=== PATIENT | male | born 1945 | race Caucasian/White ===

== ENCOUNTER → 2023-10-04 10:48 | Outpatient (REF) | payer MEDICARE, OTHER, SELFPAY ==
[2023-10-04 12:38] LABS: Blood Urea Nitrogen 21 mg/dl (9-20); Calcium 9.4 mg/dl (8.4-10.2); Carbon Dioxide 27 mmol/L (22-30); Chloride 103 mmol/L (98-107); Glucose 131 mg/dl (70-99); Potassium 4.5 mmol/L (3.5-5.1); Sodium 138 mmol/L (135-145); eGFR 56.93
== END ==
LOC: REG 10:48
PROVIDERS: ATTENDING PHYSICIAN Specialist
DX: N17.9 Acute kidney failure, unspecified (principal); I10 Essential (primary) hypertension
CPT/HCPCS: 36415; 80048

== ENCOUNTER 2024-02-08 08:36 | Inpatient (IN) | payer MEDICARE, OTHER, SELFPAY ==
[2024-02-06 20:38] VITALS: BP 161/74
[2024-02-06 20:39] VITALS: BMI 27.1
--- NOTE | 2024-02-06 20:50 | ED.GENMED ---
History of Present Illness
General
Chief Complaint: Chest Pain
Source: patient
Exam Limitations: none
Time Seen by Provider: 02/06/24 20:37
History of Present Illness
History of Present Illness:
79-year-old male started with some indigestion-like symptoms late last night. The symptoms waxed and waned throughout the night. He did not sleep well. Today significant time in bed because of tiredness and some recurring symptoms. Also has had
some increased baseline shortness of breath with exertion the last few days. Patient took nitroglycerin at home and passed out. He is currently asymptomatic.
Past History
Past History
ED Past Medical History: CAD, Cancer (lymphoma ), GERD, HTN, Hypercholesterolemia, MS (STEMI October 2018), Other (polycythemia vera), Other (Right upper extremity DVT October 2018) and Other (Obstructive sleep apnea)
ED Past Surgical History: Cardiac (Right coronary artery thrombectomy October 2018) and Urological (Prostatectomy 2011)
Social History
Tobacco: Non-smoker
Alcohol: None
Personal:
Living: with family
Employment: Retired
Family History
Family History: Other (Noncontributory)
Review of Systems
Review of Systems
Constitutional: Denies fever or chills
Cardiac: Denies palpitations
ABD/GI: Denies bloody stools or black stools
Phy Exam
Physical Exam
Physical Exam:
GENERAL: Alert and oriented in no apparent distress
EYE: Orbits normal.
NECK: Supple, no thyroid palpable
ENT: Pharynx without erythema
CARDIAC: Regular rate and rhythm without any obvious murmurs.
LUNGS: Clear breath sounds,normal
ABDOMEN: Soft, without focal tenderness or distention
NEUROLOGICAL: Alert and oriented , grossly non-focal
SKIN: Warm and dry, no rash or lesion, no discoloration, skin intact.
MUSCULOSKELETAL: No edema,no deformity.Good color
PSYCH: Normal and appropriate interaction.
Scores
Heart Score for Chest Pain Patients
STEMI patient?: No
History: Moderately Suspicious
ECG: Normal
Age: >/= 65 years
Risk Factors: >/= 3 Risk Factors or History of CAD
Troponin: </= Normal Limit
Heart Score for Chest Pain Patients: 5
Heart Score Risk: 20.3% MACE over next 6 weeks
Course
Orders/Labs/Results
Orders:
Orders
02/06/24 20:37
Electrocardiogram (*1) Urgent
Reason for Study: Chest Pain
EKG- Treatment ONCE
02/06/24 20:38
Complete Blood Count/With Diff Urgent
Comprehensive Metabolic Panel Urgent
Lipase Urgent
Troponin I Urgent
02/06/24 20:50
Add On- LAB Urgent
Tests Added?: lipase
CXR2 [CR Chest - 2 Views ] Urgent
Comment:
Reason For Exam: cp
02/06/24 21:47
Heparin 4,000 units IV NOW STA
Nursing to Place Non Medication Order As Directed
Physician Order: PTT 6 hours after initial start of Heparin infusion
02/06/24 21:54
PTT Urgent
Comment: Obtain baseline before beginning heparin infusion if not already collected
02/06/24 22:00
Heparin 35681 Units/250 ml 25,000 units in 250 ml IV PER PROTOCOL
Weight to be used for heparin protocol in kilograms (kg):: 88.2
Protocol:: Cardiac Tx/Acute Coronary
PTT Goal Range to be used:: PTT 73 to 111 seconds
Order type:: Initial
INITIAL Infusion Dose (UNITS/KG/hr) & then follow protocol:: 12 units/kg/hr
Infusion Dose in UNITS/hr & then follow protocol (UNITS/hr):: 1,000
INFUSION RATE in mL/hr & then follow protocol (mL/hr):: 10
PTT less than or equal to 64 seconds:: Increase rate by 200 units/hr (+ 2 mL/hr)
PTT 64.1 to 72.9 seconds:: Increase rate by 100 units/hr (+ 1 mL/hr)
PTT 73 to 111 seconds:: Target Range. No change in rate.
PTT 111.1 to 130.9 seconds:: Decrease rate by 100 units/hr (- 1 mL/hr)
PTT 131 to 199.9 seconds:: HOLD for 1 hr. Then decrease rate by 200 units/hr (- 2 mL/hr)
PTT greater than or equal to 200 seconds:: HOLD for 2 hrs & Notify Provider. Then decrease by 200 units/hr (-
2 mL/hr)
Lab follow-up:: Each change, PTT q6h until 2 consecutive are therapeutic. Then PTT
daily.
Abnormal Lab Results
02/06/24
20:38
WBC 12.5 H 10^3/uL
(4.8-10.8)
MCV 76.7 L fL
(80.0-94.0)
MCH 24.4 L pg
(27.0-31.0)
MCHC 31.9 L g/dL
(33.0-37.0)
RDW 18.5 H %
(11.5-14.5)
MPV 10.6 H fL
(7.4-10.4)
Abs Immat Gran (auto) 0.1 H 10^3/uL
(0-0.05)
Absolute Neuts (auto) 9.4 H 10^3/uL
(1.4-6.5)
Absolute Lymphs (auto) 1.0 L 10^3/uL
(1.2-3.4)
Absolute Monos (auto) 1.7 H 10^3/uL
(0.1-0.6)
Lymphocytes % 8.1 L %
(20.5-51.1)
Monocytes % 13.4 H %
(1.7-9.3)
Chloride 108 H mmol/L
(98-107)
Creatinine 1.6 H mg/dL
(0.7-1.3)
Glucose 120 H mg/dl
(70-99)
Total Protein 6.0 L g/dl
(6.3-8.2)
Albumin 3.4 L g/dl
(3.5-5.0)
02/06/24 20:38
02/06/24 20:38
Vital Signs
Initial and Last Documented VS:
Initial Vital Signs
BP
161/74
02/06/24 20:38
Last Documented Vital Signs
Temp Pulse Resp BP Pulse Ox
98.9 F 61 14 150/72 96
02/06/24 20:41 02/06/24 21:00 02/06/24 21:00 02/06/24 21:00 02/06/24 21:00
MDM/Problems Addressed
Differential Diagnosis Includes:
Patient describing somewhat concerning symptoms of possible new onset angina/unstable angina. Some exertional shortness of breath. Intermittent indigestion. Known stenting. Workup in progress. Will warrant admission
*Radiology
Radiology exam reviewed: preliminary read by ED provider (Negative)
*Pulse Oximetry
Patient hypoxic: no
*EKG
Interpreted by ED Provider?: Yes
Interpretation: abnormal
Comparison EKG: no changes
Heart Rate: 65
Rate: normal
Rhythm: sinus
[place]: normal axis
Interval: first degree heart block
QRS Pattern: right bundle branch block
Ischemia: no ischemia
*Gas Station Clerk Interpretation
Rate: normal
Interpretation: normal
Heart Rate: 66
Rhythm: sinus
*Critical Care Note
Total Time (30-74mins, 75-104mins- exclusive of procedures): Not Applicable
Data Reviewed
Review of Other/Old Records Reveals: Labs, Records, Testing and Discharge Summary (History of inferior MS stent thrombectomy stent times 08/30/2020.)
Update Note
Update Note:
Patient is remained stable and nontoxic. Initial workup unremarkable. Story is somewhat concerning for possible unstable angina. Discussed with cardiology and hospitalist. Heparinize and admit.
ED Attending Note
-
Portions of this chart may have been created with voice recognition software.� Occasional wrong word or��sound alike� substitutions may have occurred due to the inherent limitations of voice recognition software.
Discharge Plan
Departure
Patient Disposition: Admit
Date of Disposition: 02/06/24
Time of Disposition: 21:46
Presentation/result/management discussed w/ accepting MD/DO: Cardiology
Discharge Problem:
Recurrent chest pain, Shortness of breath with exertion, Syncope, History of cardiac stenting, Renal insufficiency
Prescriptions:
No Action
pantoprazole 40 MG tablet,delayed release (DR/EC)
40 mg PO DAILY Qty: 90 3RF
nitroglycerin 0.4 MG tablet, sublingual
0.4 mg sublingual [id number] PRN (Reason: chest pain) Qty: 25 2RF
cetirizine 10 MG tablet
10 mg PO DAILY
aspirin 81 MG tablet,delayed release (DR/EC)
81 mg PO DAILY Qty: 1 0RF
carvedilol 12.5 mg Tablet
12.5 mg PO BID
valsartan 80 mg Tablet
80 mg PO DAILY
hydralazine 50 mg Tablet
100 mg PO BID
albuterol sulfate 90 mcg/actuation Hfa Aerosol Inhaler
2 puff INHALATION R Q4HPRN PRN (Reason: sob)
doxycycline hyclate 20 mg Tablet
20 mg PO DAILY
rosuvastatin 40 mg Tablet
40 mg PO HS
escitalopram oxalate 5 mg Tablet
5 mg PO HS
Systane (PF) 0.4-0.3 % Dropperette
1 drp BOTH EYES Q6HPRN PRN (Reason: dry eyes)
Arnuity Ellipta 100 mcg/actuation Blister With Device
1 inh INHALATION R DAILY
Interventions
Interventions:
*Risk Screen - Suicide Last Done: 02/06/24 20:39
*General Assessment Last Done: 02/06/24 20:39
*Neglect/Abuse Screening Last Done: 02/06/24 20:39
ED- Fall Risk Assessment Last Done: 02/06/24 20:42
ED- Cardiac Assessment Last Done: 02/06/24 20:42
Discharge Date and Time
Print Language: YEMENI
[2024-02-06 20:56] LABS: % Basophils 0.3 % (0-2); % Eosinophils 2.6 % (0-6); % Immature Granulocytes 0.4 % (0-0.5); % Lymphocytes 8.1 % (20.5-51.1); % Monocytes 13.4 % (1.7-9.3); % Neutrophils 75.2 % (42.2-75.2); Absolute Eosinophils 0.3 10^3/uL (0-0.7); Absolute Immature Granulocytes 0.1 10^3/uL (0-0.05); Absolute Monocytes 1.7 10^3/uL (0.1-0.6); Absolute Neutrophils 9.4 10^3/uL (1.4-6.5); Hematocrit 41.7 % (39.0-52.0); Hemoglobin 13.3 g/dL (13.0-18.0); Mean Corp Hgb Conc. 31.9 g/dL (33.0-37.0); Mean Corpuscular Hgb 24.4 pg (27.0-31.0); Mean Corpuscular Volume 76.7 fL (80.0-94.0); Mean Platelet Volume 10.6 fL (7.4-10.4); Nucleated Red Blood Cells % 0 % (-); Platelet Count 178 10^3/uL (130-400); Red Blood Cell Count 5.44 10^6/uL (4.70-6.10); Red Cell Dist. Width 18.5 % (11.5-14.5); White Blood Cell Count 12.5 10^3/uL (4.8-10.8)
[2024-02-06 21:00] VITALS: BP 150/72
[2024-02-06 21:11] LABS: ALT (SGPT) 17 U/L (0-50); AST (SGOT) 20 U/L (17-59); Albumin 3.4 g/dl (3.5-5.0); Alkaline Phosphatase 64 U/L (38-126); Blood Urea Nitrogen 20 mg/dl (9-20); Calcium 8.8 mg/dl (8.4-10.2); Carbon Dioxide 24 mmol/L (22-30); Chloride 108 mmol/L (98-107); Estimated Creatinine Clearance 41 ml/min; Glucose 120 mg/dl (70-99); Potassium 4.2 mmol/L (3.5-5.1); Sodium 136 mmol/L (135-145); Total Bilirubin 0.9 mg/dl (0.2-1.3)
[2024-02-06 21:15] LABS: Lipase 104 U/L (23-300)
[2024-02-06 21:18] LABS: Troponin I < 0.012 ng/ml
[2024-02-06 22:00] VITALS: BP 160/74
[2024-02-06] MEDS: HEPARIN 25000 UNITS/250 ML IV (22:08)
[2024-02-06] MEDS: HEPARIN 4000 UNITS IV (22:08)
[2024-02-06 22:18] LABS: APTT 29.8 Sec (23.4-35.0)
[2024-02-06 23:00] VITALS: BP 159/73
--- NOTE | 2024-02-06 23:41 | HPS.HSE ---
Family Physician
-
Family Physician: Juan C Chilel
Chief Complaint
-
Chest pain
History of Present Illness
Patient is a 79y M with PMH significant for ASCVD and COPD who presents to ED complaining of chest pain. Patient states that discomfort started last PM. He describes the sensation as a 'pressure' in his epigastric region and notes that it feels
'like gas'. Patient notes some SOB with exertion and some diaphoresis. His discomfort persisted overnight and he states that he was 'restless' and slept poorly. He also notes that his PAP machine did not work for some reason last PM.
Patient notes that his discomfort persisted 'off-and-on' throughout the day today.
Patient took 3 NTG at home - 5 minutes between each dose. He states that he did appreciate some improvement in his discomfort.
Patient stood to go to the bathroom, began to feel lightheaded and then passed out. He states that he 'sank' to the floor and denies any significant injury. His was present during the syncope / collapse.
Patient presented to the ED for further evaluation and treatment.
He notes that he is pain free at present - no further epigastric pressure, etc.
Patient states that he has had similar symptoms in the past and been evaluated in the ED. He was told it was his gallbladder.
He has prior h/o CAD and prior GA as well. He states that his current pain differs from symptoms he had during those episodes.
Medical History
Past Medical History
Past Medical History: Reports Other
Additional Past Medical History:
ASCVD
Hypertension
Polycythemia
Prostate Cancer
Follicular Lymphoma
COPD
Malignant Melanoma
Past Surgical History: Reports Other
Additional Past Surgical History:
PTCA
PTCA with Stent (x2)
T&A
Appendectomy
Thymectomy
Social History
Tobacco: Non-smoker
Alcohol: Occasional
Drug: None
Family History
Family History: Not pertinent
Allergies / Home Medications
Allergies reflects when Allergies were last updated in [facility].
Home Medications with original date entered in [facility]
Allergy/Medication List:
Allergies
Allergy/AdvReac Type Severity Reaction Status Date / Time
No Known Allergies Allergy Verified 04/14/21 14:57
Home Medications
nitroglycerin 0.4 mg sublingual tablet 0.4 mg sublingual [id number] PRN chest pain #25 tabs 10/24/18
pantoprazole 40 mg tablet,delayed release 40 mg PO DAILY ##90 10/24/18
cetirizine 10 mg tablet 10 mg PO DAILY Allergies 04/14/21
aspirin 81 mg tablet,delayed release 81 mg PO DAILY #1 tab 04/17/21
albuterol sulfate 90 mcg/actuation aerosol inhaler 2 puff inhalation R Q4HPRN PRN sob 02/06/24
carvedilol 12.5 mg tablet 12.5 mg PO BID 02/06/24
doxycycline hyclate 20 mg tablet 20 mg PO DAILY 02/06/24
escitalopram oxalate 5 mg tablet 5 mg PO HS 02/06/24
fluticasone furoate 100 mcg/actuation blister powder for inhalation (Arnuity Ellipta) 1 inh inhalation R DAILY 02/06/24
hydralazine 50 mg tablet 100 mg PO BID 02/06/24
peg 400-propylene glycol (PF) 0.4 %-0.3 % eye drops in a dropperette (Systane (PF)) 1 drp BOTH EYES Q6HPRN PRN dry eyes 02/06/24
rosuvastatin 40 mg tablet 40 mg PO HS 02/06/24
valsartan 80 mg tablet 80 mg PO DAILY 02/06/24
Review of Systems
-
History Source: Patient
A 12 point ROS was completed and negative except as noted: Yes
Constitutional: Denies Fever or Chills
EENT: Denies Sore Throat
Respiratory: Reports Trouble Breathing; Denies Cough
Cardiac: Reports Chest Pain, Diaphoresis and Syncope; Denies Palpitations
Abdomen/GI: Denies Abdominal Pain, Nausea, Vomiting or Diarrhea
: Denies Dysuria or Frequency
Musculoskeletal: Denies Joint Pain or Edema
Neurological: Denies Dizzy or Headache
Psych: Denies Depression or Anxiety
Physical Exam
Vital Signs
Vital Signs
Temp Pulse Resp BP Pulse Ox
98.9 F 66 16 159/73 95
02/06/24 20:41 02/06/24 23:00 02/06/24 23:00 02/06/24 23:00 02/06/24 23:00
Physical Exam
General: Other (79y M in no acute distress.)
HEENT: Moist mucous membranes and PERRLA
Respiratory: Clear; No Wheezes, Rales or Rhonchi
Cardiac: S1/S2 and Regular Rhythm; No Murmur
GI: Soft, Non Tender, Non Distended and Normal Bowel Sounds
Musculoskeletal: No Clubbing, No Cyanosis and No Edema
Neuro: AO x 3
Laboratory Results
-
02/06/24 20:38
02/06/24 20:38
Laboratory Results
APTT 29.8 Sec (23.4-35.0) 02/06/24 21:54
Total Bilirubin 0.9 mg/dl (0.2-1.3) 02/06/24 20:38
AST 20 U/L (17-59) 02/06/24 20:38
ALT 17 U/L (0-50) 02/06/24 20:38
Alkaline Phosphatase 64 U/L (38-126) 02/06/24 20:38
Troponin I < 0.012 ng/ml 02/06/24 20:38
Lipase 104 U/L (23-300) 02/06/24 20:38
Impression/Plan
-
A/P: Patient is a 79y M with PMH significant for ASCVD, HTN and COPD who presents to ED complaninig of chest pain since last PM.
Chest Pain
- Observe overnight for further evaluation and treatment.
- EKG is unremarkable and initial troponin is undetectable after 24 hours of symptoms.
- Cardiology has recommended heparin infusion overnight.
- Continue to follow troponin for any changes.
- Currently pain-free - monitor for any recurrent pain or other new symptoms.
- Continue usual outpatient CV med regimen including ASA, statin, etc.
- Hold PO doxycycline as symptoms may be GI in origin.
- Daily PPI.
Syncope
- Syncope clearly secondary to hypotension due to NTG.
- Monitor on tele overnight for any evidence of arrhythmia but doubtful.
SELINA
- SCr = 1.6 compared to baseline of 1.3.
- Patient has history of worsening renal function on valsartan and this was recently re-added to his regimen.
- Will again hold ARB and follow for return to baseline renal function.
Benign Hypertension
- Stable. Continue home meds (minus ARB) with holding parameters.
- Adjust as needed for adequate BP control.
COPD without Acute Exacerbation
- No smoking history. ? etiology of lung disease.
- Patient states that he never uses rescue inhaler.
- Continue Arnuity.
- Monitor for any new symptoms.
DVT Prophylaxis: On Heparin infusion
Code Status: Full
[2024-02-07] VITALS (11 sets, daily range): BP systolic 122–171; BP diastolic 63–117; BMI 27.0
--- NOTE | 2024-02-07 01:52 | PTCARENOTE ---
Received patient from ER. Awake and alert, denies dizziness. Sinus on telemetry. Heparin drip at 1000 units/hr. No chest pain. Patient usually wears nasal pillows with CPAP machine at home, not available here so pt placed on 2L nasal canula
overnight. Admission history taken and recorded. Call tineo within reach.
[2024-02-07 04:57] LABS: APTT 36.5 Sec (23.4-35.0)
[2024-02-07 05:11] LABS: Blood Urea Nitrogen 21 mg/dl (9-20); Calcium 8.9 mg/dl (8.4-10.2); Carbon Dioxide 25 mmol/L (22-30); Chloride 107 mmol/L (98-107); Estimated Creatinine Clearance 47 ml/min; Glucose 96 mg/dl (70-99); HDL Cholesterol 64 mg/dl; LDL Cholesterol, Calculated 58 mg/dl; Potassium 4.5 mmol/L (3.5-5.1); Sodium 138 mmol/L (135-145); Total Cholesterol 139 mg/dl (50-199); Triglyceride 89 mg/dl (10-149); Very Low Density Lipoprotein 17 mg/dl (0-30); eGFR 51.77
[2024-02-07 05:21] LABS: Troponin I < 0.012 ng/ml
[2024-02-07] MEDS: FLOVENT 44 MCG INHALER 2 PUFF INH ×2 (07:13→19:30)
--- NOTE | 2024-02-07 07:59 | CON.CAR ---
Addendum entered and electronically signed by Ronald Trevizo MD 02/07/24 10:42:
Patient seen and examined in collaboration with ROUGH RIB GRADER; agree with below.
-79-year-old male with medical history as outlined below, including CAD with prior stenting in 2010, chronic RBBB, hypertension, hyperlipidemia, and CKD presenting with abdominal pain.
-Patient states the pain started in his upper abdomen and then radiated down to his lower abdomen.
-Cardiac enzymes are negative; pain appears to be non-cardiac.
-Discontinue heparin drip.
-Management of abdominal pain as per primary Hospitalist.
-Will obtain an echocardiogram today to thoroughly reassess cardiac function; if unremarkable, no further cardiac testing indicated at this time and patient can follow-up with Cardiology as an outpatient.
Original Note:
Consultation
Consultation Request
Date/Time Consultation Requested: 02/06/2024 23:50
Date/Time Consultation Performed: 02/07/2024 08:00
Requesting Provider: Dr. Pozo
Performing Provider: ALEYDA Millan for Dr. Marques
Reason for Consultation: Epigastric pain
Medical History
-
Chief Complaint: Syncope
History of Present Illness:
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
hypertension, dyslipidemia, CKD 3 AA, right upper extremity DVT (completed Eliquis), asthma, polycythemia, and MARCELLA on CPAP presents with a chief complaint of syncope. He had been experiencing lower quadrant abdominal pain for about 36 hours at
home. It felt like gas. He had no associated nausea, vomiting, diarrhea nor constipation. His lower quadrants feel full and are tender to palpation. His last admission requiring PCI he had epigastric pain. Initially he thought it was
gallstones. He decided to take nitroglycerin at home to see if he had improvement in his abdominal pain. He took 3 tablets of 5 minutes apart as directed and then had a syncopal episode. His prompted him to seek care in the emergency
department. He is having no chest pain. He is not short of breath.
Past Medical History
Past Medical History: Asthma, CAD, Cancer (Lymphoma, Prostate), HTN, Hypercholesterolemia and Other (Polycythemia, MARCELLA, RUE DVT)
Past Surgical History: Appendectomy and Tonsilectomy
Social History
Tobacco: Former Smoker
Alcohol: Occasional
Drug: None
Personal:
Living: With Family
Employment: Retired
Family History
Family History: Reviewed & Not Pertinent
Allergies / Home Medications
Allergy/AdvReac Type Severity Reaction Status Date / Time
No Known Allergies Allergy Verified 04/14/21 14:57
�Medication �Instructions �Recorded �Confirmed �Type
nitroglycerin 0.4 mg sublingual 0.4 mg sublingual [id number] PRN 10/24/18 02/06/24 Rx
tablet chest pain #25 tabs
pantoprazole 40 mg tablet,delayed 40 mg PO DAILY ##90 10/24/18 02/06/24 Rx
release
cetirizine 10 mg tablet 10 mg PO DAILY Allergies 04/14/21 02/06/24 History
aspirin 81 mg tablet,delayed 81 mg PO DAILY #1 tab 04/17/21 02/06/24 Rx
release
albuterol sulfate 90 mcg/actuation 2 puff inhalation R Q4HPRN PRN sob 02/06/24 02/06/24 History
aerosol inhaler
carvedilol 12.5 mg tablet 12.5 mg PO BID Heart Failure 02/06/24 02/06/24 History
doxycycline hyclate 20 mg tablet 20 mg PO DAILY Infection 02/06/24 02/06/24 History
escitalopram oxalate 5 mg tablet 5 mg PO HS Depression 02/06/24 02/06/24 History
fluticasone furoate 100 1 inh inhalation R DAILY 02/06/24 02/06/24 History
mcg/actuation blister powder for Lung/Breathing Issues
inhalation (Arnuity Ellipta)
hydralazine 50 mg tablet 100 mg PO BID Blood Pressure 02/06/24 02/06/24 History
peg 400-propylene glycol (PF) 0.4 1 drp BOTH EYES Q6HPRN PRN dry eyes 02/06/24 02/06/24 History
%-0.3 % eye drops in a dropperette
(Systane (PF))
rosuvastatin 40 mg tablet 40 mg PO HS High Cholesterol 02/06/24 02/06/24 History
valsartan 80 mg tablet 80 mg PO DAILY Blood Pressure 02/06/24 02/06/24 History
Review of Systems
-
History Source: Patient
All other systems: Negative unless noted
Constitutional: Fatigue
EENT: No Symptoms
Respiratory: No Symptoms
Cardiac: No Symptoms
Abdomen/GI: Abdominal Pain
: No Symptoms
Musculoskeletal: No Symptoms
Skin: No Symptoms
Neurological: No Symptoms
Endocrine: No Symptoms
Hematologic/Lymphatic: No Symptoms
Physical Exam
Vital Signs
Temp Pulse Resp BP Pulse Ox
99.3 F 71 16 169/70 95
02/07/24 04:43 02/07/24 07:24 02/07/24 07:24 02/07/24 07:23 02/07/24 07:24
Lab Results
02/06/24 20:38
02/07/24 04:36
Troponin I Cancelled 02/07/24 08:30
Physical Exam
General: Well Developed, Well Nourished, No Apparent Distress and Comfortable
HEENT: Normocephalic, Anicteric and Moist Mucous Membranes
Respiratory: Clear and Non Labored Respirations
Cardiac: S1/S2 and Regular Rhythm; Negative Peripheral Edema
Breast: Deferred by me
GI: Normal Bowel Sounds and Tender
Rectal: Deferred by Provider
Genito-urinary: No Costovertebral Tender
Musculoskeletal: No Clubbing, No Cyanosis and No Edema
Skin: Warm and Dry
Neuro: AO x 3
Hematologic/Lymphatic: No Lymphadenopathy
Psych: Calm
Impression / Plan
-
BACKGROUND: 79M with CAD (inferior STEMI with RV infarct s/p RCA thrombectomy without stent 10/2018, [facility] to pRCA & mLAD 04/2021), first-degree AV block, right bundle branch block, hypertension, dyslipidemia, CKD 3 AA, right upper extremity DVT
(completed Eliquis), asthma, polycythemia, and MARCELLA on CPAP presents with a chief complaint of syncope.
Gleason Operator: Dr. Guerra
Syncope
-This was likely in the setting of hypotension as he had taken 3 sublingual nitroglycerin
-Troponin <0.012 x 2
-Update echocardiogram
Abdominal pain, tender to palpation, per primary
CAD
-Stable without chest pain
-Continue aspirin, beta-pito, and rosuvastatin
HTN
-BP above goal, valsartan on hold by primary service, resumed
RBBB, chronic
-Nocturnal AV Wenckebach seen last admission
CKD stage 3
Prostate Cancer S/P Prostatectomy
Polycythemia
RUE DVT (10/2018)
Data Reviewed
-
EKG: Report Reviewed by me (Sinus rhythm, first-degree AV block, RBBB, rate 72)
Medical Tests (Nuc Med, Echo etc): Report Reviewed by me (Echocardiogram cardiac catheterization as above)
Labs: Labs Reviewed by me
Old Records: Reviewed
[2024-02-07] MEDS: COREG 12.5 MG PO ×2 (08:13→20:20)
[2024-02-07] MEDS: APRESOLINE 100 MG PO ×2 (08:13→20:20)
[2024-02-07] MEDS: PROTONIX 40 MG PO (08:13)
[2024-02-07] MEDS: ASPIR LOW (ENTERIC COATED) 81 MG PO (08:13)
--- NOTE | 2024-02-07 08:51 | PTCARENOTE ---
Assumed care of patient at 0700. Pt is awake, alert, and oriented. No complaints of chest pain. Pt remains SR with first degree AV block, HR 70's. BP 169/70 MAP 97. Morning BP medications administered. Pulse oximetry 95% on room air. Pt currently
NPO. Pt remains on Heparin gtt at 1200 units/hr. Pt currently resting comfortably in bed with call tineo within reach.
[2024-02-07] MEDS: DIOVAN 80 MG PO (09:56)
--- NOTE | 2024-02-07 10:53 | CM ---
Chart reviewed. Patient is independent of ADLS, lives with his in a [address], [address]. Patient waiting on an echo. Plan is for the patient to return home. CM to follow
--- NOTE | 2024-02-07 11:34 | PTCARENOTE ---
Heparin gtt d/c'd. Echo completed at bedside. Troponin lab collected, pending result. Pt reports lower abdominal tenderness with palpation. Pt now going for abdominal xray. Pt remains SR with HR 70's. BP 138/65 MAP 85. Pulse oximetry 96% on room
air.
[2024-02-07 12:01] LABS: Troponin I < 0.012 ng/ml
--- NOTE | 2024-02-07 14:49 | W.PN.HOSP.TC ---
Today's Communication/Plan
-
trial regular diet and PPI, Gas X
encourage ambulation
Assessment / Plan
Assessment / Plan
Assessment:
Chest Pain
Abdominal pain
- both improving/resolving
- Obs series with gas, no convincing evidence of obstruction
- Echo: pending
- did ok with clears; regular diet
- PPI and gas X
- appreciate Cards recs; trops x 3 negative
Syncope
- Syncope clearly secondary to hypotension due to NTG.
- Monitor on tele overnight for any evidence of arrhythmia but doubtful.
SELINA
- SCr = 1.4 compared to baseline of 1.3.
- monitor with ARB resumption
Benign Hypertension
- Stable. Continue home meds with holding parameters.
- Adjust as needed for adequate BP control.
COPD without Acute Exacerbation
- No smoking history. ? etiology of lung disease.
- Patient states that he never uses rescue inhaler.
- Continue Arnuity.
- Monitor for any new symptoms.
DVT Prophylaxis: SC heparin
Code Status: Full
Anticipated Discharge: Within 24 hours
Subjective/Interval History
-
Date of Service: February 07, 2024
tolerating clears, pain improving
denies chest pain
Objective Data
-
Labs:
Laboratory Results
02/07/24 02/07/24
04:36 11:30
APTT 36.5 H Cancelled
Sodium 138
Potassium 4.5
Chloride 107
Carbon Dioxide 25
BUN 21 H
Creatinine 1.4 H
Glucose 96
Calcium 8.9
Vital Signs:
Vital Signs
Temp Pulse Resp BP Pulse Ox
99.3 F 72 18 138/65 96
02/07/24 11:13 02/07/24 11:13 02/07/24 11:13 02/07/24 11:10 02/07/24 11:13
Physical Exam
-
General: No Apparent Distress
HEENT: Normocephalic and Atraumatic
Respiratory: Negative Wheezes or Rales
Cardiac: Regular Rhythm and S1/S2
GI: Soft and Nontender
Genito-urinary: No Costovertebral Tender
Musculoskeletal: No Edema
Neuro: AO x 3
Psych: Calm
Data Reviewed
-
Total Time Spent with Patient (in minutes): 45
Labs: Labs Reviewed by me
--- NOTE | 2024-02-07 16:00 | PTCARENOTE ---
No complaints of pain. Pt tolerated clear liquid diet. Ambulated in hallway without issue. Pt remains SR with HR 60's. BP 122/64 MAP 78. Pulse oximetry 95% on room air.
[2024-02-07] MEDS: REFRESH EYE DROPS (PF) 1 DROPS BOTH EYES (16:25)
--- NOTE | 2024-02-07 18:58 | PTCARENOTE ---
Pt tolerated regular diet for dinner. No complaints of pain.
[2024-02-07] MEDS: HEPARIN 5000 UNITS SC (20:21)
[2024-02-07] MEDS: CRESTOR 40 MG PO (22:14)
[2024-02-07] MEDS: LEXAPRO 5 MG PO (22:14)
[2024-02-08 03:23] VITALS: BP 119/56
[2024-02-08 04:03] LABS: Hematocrit 40.1 % (39.0-52.0); Mean Corp Hgb Conc. 32.4 g/dL (33.0-37.0); Mean Corpuscular Hgb 24.6 pg (27.0-31.0); Mean Corpuscular Volume 75.9 fL (80.0-94.0); Mean Platelet Volume 11.1 fL (7.4-10.4); Platelet Count 179 10^3/uL (130-400); Red Blood Cell Count 5.28 10^6/uL (4.70-6.10); Red Cell Dist. Width 18.2 % (11.5-14.5); White Blood Cell Count 9.2 10^3/uL (4.8-10.8)
[2024-02-08 04:25] LABS: Blood Urea Nitrogen 24 mg/dl (9-20); Calcium 8.5 mg/dl (8.4-10.2); Carbon Dioxide 25 mmol/L (22-30); Chloride 106 mmol/L (98-107); Estimated Creatinine Clearance 44 ml/min; Glucose 100 mg/dl (70-99); Potassium 4.3 mmol/L (3.5-5.1); Sodium 137 mmol/L (135-145); eGFR 47.65
--- NOTE | 2024-02-08 06:24 | PTCARENOTE ---
Assumed care of patient at change of shift. VSS, NSR/sinus with first degree on tele. Sinus nae when sleeping, 40s-50s. Patient wears nasal pillows with CPAP at home and refuses CPAP mask, placed on 2L NC at HS. No complaints of pain or
dizziness. Can make needs known. Call tineo within reach.
--- NOTE | 2024-02-08 06:36 | PTCARENOTE ---
Received patient as admit from ED at 2355. Patient placed on tele monitor. Sinus bradycardia in 40s-50s. No complaints of chest pain or SOB. Heparin gtt currently infusing at 12ml/hr. Patient oriented to room and plan of care discussed.
Patient verbalizes understanding. Remains NPO since midnight for possible clinical lab specialist in AM. Ambulating independently in room without difficulty. Call tineo within reach.
[2024-02-08 07:11] VITALS: BMI 26.2
[2024-02-08 07:13] VITALS: BP 149/70
[2024-02-08] MEDS: FLOVENT 44 MCG INHALER 2 PUFF INH (08:00)
--- NOTE | 2024-02-08 09:03 | PTCARENOTE ---
Assumed care of pt from prev nsg shift; AAOx3 w/no c/o CP or SOB. Pt's VS stable w/HR 50's and BP 149/70. Pt is SB w/1st deg AV block on telemetry monitoring. Pt ambulating freq in rm & halls. Pt anxiously awaiting D/C to . Pt w/no addtl needs at
this time; Plan of care ongoing.
[2024-02-08] MEDS: HEPARIN SC (10:14)
[2024-02-08] MEDS: DIOVAN 80 MG PO (10:14)
[2024-02-08] MEDS: PROTONIX 40 MG PO (10:14)
[2024-02-08] MEDS: ASPIR LOW (ENTERIC COATED) 81 MG PO (10:14)
[2024-02-08] MEDS: APRESOLINE 100 MG PO (10:14)
[2024-02-08] MEDS: COREG 12.5 MG PO (10:14)
--- NOTE | 2024-02-08 10:42 | W.PN.HOSP.TC ---
Today's Communication/Plan
-
dc to home
Assessment / Plan
Assessment / Plan
Assessment:
Chest Pain
Abdominal pain
- both improving/resolving
- Obs series with gas, no convincing evidence of obstruction
- Echo: Normal biventricular size and systolic function without regional wall motion abnormality.
- tolerating reg diet
- continue PPI and gas X at discharge
- appreciate Cards recs; trops x 3 negative
Syncope
- Syncope clearly secondary to hypotension due to NTG.
- Monitor on tele overnight for any evidence of arrhythmia but doubtful.
SELINA
- SCr = 1.4 compared to baseline of 1.5.
- continue ARB
Benign Hypertension
- Stable. Continue home meds with holding parameters.
- Adjust as needed for adequate BP control.
COPD without Acute Exacerbation
- No smoking history. ? etiology of lung disease.
- Patient states that he never uses rescue inhaler.
- Continue Arnuity.
- Monitor for any new symptoms.
DVT Prophylaxis: SC heparin
Code Status: Full
More than 30 minutes spent in discharge including
Final examination of the patient
Summarizing hospital stay
Instructions for continuing care to all relevant caregivers
Preparation of discharge records, prescriptions, and referral forms
Total time spent (in minutes): 42
Anticipated Discharge: Today
Subjective/Interval History
-
Date of Service: February 08, 2024
tolerating diet, no complaints
Objective Data
-
Labs:
Laboratory Results
02/08/24
03:21
WBC 9.2
Hgb 13.0
Hct 40.1
Plt Count 179
Sodium 137
Potassium 4.3
Chloride 106
Carbon Dioxide 25
BUN 24 H
Creatinine 1.5 H
Glucose 100 H
Calcium 8.5
Vital Signs:
Vital Signs
Temp Pulse Resp BP Pulse Ox
97.9 F 68 18 149/70 95
02/08/24 07:30 02/08/24 08:01 02/08/24 08:01 02/08/24 07:13 02/08/24 08:01
I&O
02/07/24 02/08/24 02/09/24
06:59 06:59 06:59
Intake Total 240 / 240
Balance 240 / 240
Physical Exam
-
General: No Apparent Distress
HEENT: Normocephalic and Atraumatic
Respiratory: Clear to Auscultation; Negative Wheezes
Cardiac: Regular Rhythm and S1/S2
Breast: Deferred by me
GI: Soft
Genito-urinary: No Costovertebral Tender
Neuro: AO x 3
Hematologic / Lymphatic: No Lymphadenopathy
Psych: Calm
Data Reviewed
-
Total Time Spent with Patient (in minutes): 42
Labs: Labs Reviewed by me
--- NOTE | 2024-02-08 10:46 | W.DS.TRANS ---
DC Summary - [employer]
-
Discharge Instructions:
Discharge Diagnosis/Procedures abdominal pain possibly food poisoning vs
stomach bug (viral). No evidence of DE or
obstruction
Diet Regular
Activity As tolerated
Bathing Restrictions None
Instructions:
Stand-Alone Forms:
Changes to Home Medications: No
Discharge Medications:
DC Medications w/original date entered in [facility]
nitroglycerin 0.4 mg sublingual tablet 0.4 mg sublingual [id number] PRN chest pain #25 tabs 10/24/18
pantoprazole 40 mg tablet,delayed release 40 mg PO DAILY ##90 10/24/18
cetirizine 10 mg tablet 10 mg PO DAILY Allergies 04/14/21
aspirin 81 mg tablet,delayed release 81 mg PO DAILY #1 tab 04/17/21
albuterol sulfate 90 mcg/actuation aerosol inhaler 2 puff inhalation R Q4HPRN PRN sob 02/06/24
carvedilol 12.5 mg tablet 12.5 mg PO BID Heart Failure 02/06/24
doxycycline hyclate 20 mg tablet 20 mg PO DAILY Infection 02/06/24
escitalopram oxalate 5 mg tablet 5 mg PO HS Depression 02/06/24
fluticasone furoate 100 mcg/actuation blister powder for inhalation (Arnuity Ellipta) 1 inh inhalation R DAILY Lung/Breathing Issues 02/06/24
hydralazine 50 mg tablet 100 mg PO BID Blood Pressure 02/06/24
peg 400-propylene glycol (PF) 0.4 %-0.3 % eye drops in a dropperette (Systane (PF)) 1 drp BOTH EYES Q6HPRN PRN dry eyes 02/06/24
rosuvastatin 40 mg tablet 40 mg PO HS High Cholesterol 02/06/24
valsartan 80 mg tablet 80 mg PO DAILY Blood Pressure 02/06/24
simethicone 80 mg chewable tablet 80 mg PO QIDPRN PRN gas pain #30 tabs 02/08/24
Home Medication Changes
Pending Results: No
Total time spent discharging patient (in min): 42
[2024-02-08 11:24] VITALS: BP 122/57
--- NOTE | 2024-02-08 12:00 | PTCARENOTE ---
Pt's IV line & telemetry pack removed. D/C instructions discussed w/pt & pt's spouse. Pt left w/personal belongings including cell phone. Pt trasnported out via wheelchair by volunteer staff. Pt's spouse to drive him home.
== END 2024-02-08 12:38 | disposition home or self-care (01) | DRG 392 ==
LOC: IVU 08:36
PROVIDERS: ADMITTING PHYSICIAN Hospitalist; ATTENDING PHYSICIAN Internal Medicine; EMERGENCY PHYSICIAN Emergency Medicine; FAMILY PHYSICIAN Family Medicine; OTHER PHYSICIAN Internal Medicine
DX: A08.4 Viral intestinal infection, unspecified (principal); N17.9 Acute kidney failure, unspecified; J44.9 Chronic obstructive pulmonary disease, unspecified; I12.9 Hypertensive chronic kidney disease with stage 1 through stage 4 chronic kidney disease, or unspecified chronic kidney disease; N18.32 Chronic kidney disease, stage 3b; F32.A Depression, unspecified; I95.9 Hypotension, unspecified; D75.1 Secondary polycythemia; R07.9 Chest pain, unspecified; R55 Syncope and collapse; T46.3X5A Adverse effect of coronary vasodilators, initial encounter; I25.10 Atherosclerotic heart disease of native coronary artery without angina pectoris; I25.2 Old myocardial infarction; Z95.5 Presence of coronary angioplasty implant and graft; I45.10 Unspecified right bundle-branch block; I44.0 Atrioventricular block, first degree; E78.5 Hyperlipidemia, unspecified; G47.33 Obstructive sleep apnea (adult) (pediatric); K21.9 Gastro-esophageal reflux disease without esophagitis; Z79.82 Long term (current) use of aspirin; Z79.899 Other long term (current) drug therapy; Z90.49 Acquired absence of other specified parts of digestive tract; Z85.46 Personal history of malignant neoplasm of prostate; Z85.820 Personal history of malignant melanoma of skin; Z85.72 Personal history of non-Hodgkin lymphomas; Z86.718 Personal history of other venous thrombosis and embolism; Z87.891 Personal history of nicotine dependence; Z90.79 Acquired absence of other genital organ(s)
CPT/HCPCS: 71046; 74022; 80048; 80053; 80061; 83690; 84484; 85025; 85027; 85730; 93005; 93306; 94640; 96374; 99285

== ENCOUNTER → 2024-02-17 08:56 | Outpatient (REF) | payer MEDICARE, OTHER, SELFPAY ==
[2024-02-17 12:05] LABS: % Basophils 0.9 % (0-2); % Eosinophils 5.8 % (0-6); % Immature Granulocytes 0.4 % (0-0.5); % Lymphocytes 16.9 % (20.5-51.1); % Monocytes 9.3 % (1.7-9.3); % Neutrophils 66.7 % (42.2-75.2); Absolute Basophils 0.1 10^3/uL (0-0.2); Absolute Eosinophils 0.4 10^3/uL (0-0.7); Absolute Lymphocytes 1.1 10^3/uL (1.2-3.4); Absolute Monocytes 0.6 10^3/uL (0.1-0.6); Absolute Neutrophils 4.4 10^3/uL (1.4-6.5); Hematocrit 42.8 % (39.0-52.0); Hemoglobin 13.5 g/dL (13.0-18.0); Mean Corp Hgb Conc. 31.5 g/dL (33.0-37.0); Mean Corpuscular Hgb 24.8 pg (27.0-31.0); Mean Corpuscular Volume 78.5 fL (80.0-94.0); Nucleated Red Blood Cells % 0 % (-); Platelet Count 271 10^3/uL (130-400); Red Blood Cell Count 5.45 10^6/uL (4.70-6.10); Red Cell Dist. Width 18.7 % (11.5-14.5); White Blood Cell Count 6.7 10^3/uL (4.8-10.8)
[2024-02-17 12:53] LABS: ALT (SGPT) 34 U/L (0-50); AST (SGOT) 26 U/L (17-59); Albumin 3.6 g/dl (3.5-5.0); Alkaline Phosphatase 71 U/L (38-126); Blood Urea Nitrogen 23 mg/dl (9-20); Carbon Dioxide 30 mmol/L (22-30); Chloride 106 mmol/L (98-107); Glucose 83 mg/dl (70-99); HDL Cholesterol 46 mg/dl; LDL Cholesterol, Calculated 65 mg/dl; Potassium 4.6 mmol/L (3.5-5.1); Sodium 141 mmol/L (135-145); Total Bilirubin 0.5 mg/dl (0.2-1.3); Total Cholesterol 133 mg/dl (50-199); Total Protein 6.4 g/dl (6.3-8.2); Triglyceride 113 mg/dl (10-149); Very Low Density Lipoprotein 22 mg/dl (0-30); eGFR 51.77
[2024-02-20 09:43] LABS: Iron 52 ug/dl (49-181)
[2024-02-20 09:53] LABS: Percent Saturation 15 % (20-50); Total Iron Binding Capacity 332 ug/dl (261-462)
== END ==
LOC: REG 08:56
PROVIDERS: ATTENDING PHYSICIAN Family Medicine
DX: I13.10 Hypertensive heart and chronic kidney disease without heart failure, with stage 1 through stage 4 chronic kidney disease, or unspecified chronic kidney disease (principal); N18.31 Chronic kidney disease, stage 3a; I25.10 Atherosclerotic heart disease of native coronary artery without angina pectoris; E78.00 Pure hypercholesterolemia, unspecified; J44.9 Chronic obstructive pulmonary disease, unspecified; D45 Polycythemia vera; I10 Essential (primary) hypertension; E78.5 Hyperlipidemia, unspecified
CPT/HCPCS: 36415; 80053; 80061; 85025

== ENCOUNTER → 2024-04-06 09:09 | Outpatient (REF) | payer MEDICARE, OTHER, SELFPAY ==
[2024-04-06 10:21] LABS: % Basophils 0.8 % (0-2); % Eosinophils 5.9 % (0-6); % Immature Granulocytes 0.2 % (0-0.5); % Lymphocytes 10.2 % (20.5-51.1); % Monocytes 13.7 % (1.7-9.3); % Neutrophils 69.2 % (42.2-75.2); Absolute Basophils 0.1 10^3/uL (0-0.2); Absolute Eosinophils 0.5 10^3/uL (0-0.7); Absolute Lymphocytes 0.9 10^3/uL (1.2-3.4); Absolute Monocytes 1.2 10^3/uL (0.1-0.6); Absolute Neutrophils 5.9 10^3/uL (1.4-6.5); Hematocrit 48.3 % (39.0-52.0); Hemoglobin 15.6 g/dL (13.0-18.0); Mean Corp Hgb Conc. 32.3 g/dL (33.0-37.0); Mean Corpuscular Hgb 26.6 pg (27.0-31.0); Mean Corpuscular Volume 82.3 fL (80.0-94.0); Mean Platelet Volume 9.8 fL (7.4-10.4); Nucleated Red Blood Cells % 0 % (-); Platelet Count 202 10^3/uL (130-400); Red Blood Cell Count 5.87 10^6/uL (4.70-6.10); Red Cell Dist. Width 22.3 % (11.5-14.5); White Blood Cell Count 8.6 10^3/uL (4.8-10.8)
[2024-04-06 10:40] LABS: Iron 39 ug/dl (49-181)
[2024-04-06 10:50] LABS: Percent Saturation 12 % (20-50); Total Iron Binding Capacity 315 ug/dl (261-462)
[2024-04-06 11:11] LABS: Anisocytosis 1+; Hypochromasia Slight; Normal RBC Morphology No
[2024-04-06 11:22] LABS: Ferritin 66.1 ng/ml (17.9-464.0)
== END ==
LOC: REG 09:09
PROVIDERS: ATTENDING PHYSICIAN Family Medicine
DX: D50.9 Iron deficiency anemia, unspecified (principal)
CPT/HCPCS: 36415; 82728; 83540; 83550; 85025

== ENCOUNTER → 2024-05-11 06:21 | Day surgery (SDC) | payer MEDICARE, OTHER, SELFPAY | LOC: GI 06:21 | PROVIDERS: ATTENDING PHYSICIAN Specialist | DX: K92.1 Melena (principal); K57.30 Diverticulosis of large intestine without perforation or abscess without bleeding; K64.8 Other hemorrhoids; D12.3 Benign neoplasm of transverse colon; D12.2 Benign neoplasm of ascending colon; K63.5 Polyp of colon | CPT/HCPCS: 45385; 45380; 88305 ==

== ENCOUNTER → 2024-09-10 09:54 | Outpatient (REF) | payer MEDICARE, OTHER, SELFPAY ==
[2024-09-10 11:28] LABS: % Basophils 0.9 % (0-2); % Eosinophils 5.7 % (0-6); % Immature Granulocytes 0.2 % (0-0.5); % Lymphocytes 16.3 % (20.5-51.1); % Monocytes 11.7 % (1.7-9.3); % Neutrophils 65.2 % (42.2-75.2); Absolute Basophils 0.1 10^3/uL (0-0.2); Absolute Eosinophils 0.3 10^3/uL (0-0.7); Absolute Lymphocytes 0.9 10^3/uL (1.2-3.4); Absolute Monocytes 0.7 10^3/uL (0.1-0.6); Absolute Neutrophils 3.8 10^3/uL (1.4-6.5); Hematocrit 52.2 % (39.0-52.0); Hemoglobin 16.4 g/dL (13.0-18.0); Mean Corp Hgb Conc. 31.4 g/dL (33.0-37.0); Mean Corpuscular Hgb 28.1 pg (27.0-31.0); Mean Corpuscular Volume 89.4 fL (80.0-94.0); Mean Platelet Volume 10.4 fL (7.4-10.4); Nucleated Red Blood Cells % 0 % (-); Platelet Count 168 10^3/uL (130-400); Red Blood Cell Count 5.84 10^6/uL (4.70-6.10); Red Cell Dist. Width 16.3 % (11.5-14.5); White Blood Cell Count 5.8 10^3/uL (4.8-10.8)
[2024-09-10 12:15] LABS: ALT (SGPT) 25 U/L (0-50); AST (SGOT) 24 U/L (17-59); Albumin 4.3 g/dl (3.5-5.0); Alkaline Phosphatase 73 U/L (38-126); Blood Urea Nitrogen 21 mg/dl (9-20); Calcium 9.7 mg/dl (8.4-10.2); Carbon Dioxide 32 mmol/L (22-30); Chloride 104 mmol/L (98-107); Glucose 90 mg/dl (70-99); Potassium 5.1 mmol/L (3.5-5.1); Sodium 143 mmol/L (135-145); Total Bilirubin 1.1 mg/dl (0.2-1.3); Total Protein 6.9 g/dl (6.3-8.2); eGFR 51.77
== END ==
LOC: REG 09:54
PROVIDERS: ATTENDING PHYSICIAN Family Medicine
DX: I12.9 Hypertensive chronic kidney disease with stage 1 through stage 4 chronic kidney disease, or unspecified chronic kidney disease (principal); Z00.00 Encounter for general adult medical examination without abnormal findings; I25.10 Atherosclerotic heart disease of native coronary artery without angina pectoris; Z95.5 Presence of coronary angioplasty implant and graft; I13.10 Hypertensive heart and chronic kidney disease without heart failure, with stage 1 through stage 4 chronic kidney disease, or unspecified chronic kidney disease; N18.31 Chronic kidney disease, stage 3a; E78.00 Pure hypercholesterolemia, unspecified; J44.9 Chronic obstructive pulmonary disease, unspecified; I25.2 Old myocardial infarction; Z23 Encounter for immunization; D45 Polycythemia vera
CPT/HCPCS: 36415; 80053; 85025

== ENCOUNTER → 2025-01-30 09:23 | Outpatient (REF) | payer MEDICARE, OTHER, SELFPAY ==
[2025-01-30 12:02] LABS: HDL Cholesterol 49 mg/dl; LDL Cholesterol, Calculated 75 mg/dl; Very Low Density Lipoprotein 22 mg/dl (0-30)
== END ==
LOC: RCS 09:23
PROVIDERS: ATTENDING PHYSICIAN Internal Medicine; FAMILY PHYSICIAN Family Medicine
DX: I25.10 Atherosclerotic heart disease of native coronary artery without angina pectoris (principal); R06.09 Other forms of dyspnea; I25.2 Old myocardial infarction
CPT/HCPCS: 36415; 80061; 93306

== ENCOUNTER → 2025-05-28 08:47 | Outpatient (REF) | payer MEDICARE, OTHER, SELFPAY ==
[2025-05-28 10:54] LABS: ALT (SGPT) 24 U/L (0-50); AST (SGOT) 22 U/L (17-59); Albumin 3.8 g/dl (3.5-5.0); Alkaline Phosphatase 57 U/L (38-126); Blood Urea Nitrogen 23 mg/dl (9-20); Calcium 9.1 mg/dl (8.4-10.2); Carbon Dioxide 30 mmol/L (22-30); Chloride 108 mmol/L (98-107); Glucose 84 mg/dl (70-99); HDL Cholesterol 44 mg/dl; LDL Cholesterol, Calculated 65 mg/dl; Potassium 4.4 mmol/L (3.5-5.1); Sodium 143 mmol/L (135-145); Total Protein 6.5 g/dl (6.3-8.2); Very Low Density Lipoprotein 19 mg/dl (0-30); eGFR 47.36
== END ==
LOC: REG 08:47
PROVIDERS: ATTENDING PHYSICIAN Family Medicine
DX: I25.10 Atherosclerotic heart disease of native coronary artery without angina pectoris (principal)
CPT/HCPCS: 36415; 80053; 80061